=== PATIENT | female | born 1975 | race Caucasian/White ===

== ENCOUNTER 2017-03-29 16:47 | Emergency (ER) | payer BC ==
[~2017-03-29] VITALS: Ht 157.5 cm; Wt 79.1 kg
[2017-03-29 18:14] VITALS: BP 123/89
--- NOTE | 2017-03-29 20:13 | NUR ---
PT AMBULATED TO BED
--- NOTE | 2017-03-29 20:15 | NUR ---
PATIENT PRESENTS TO ED WITH C/O ABD PAIN, NAUSEA AND RT EARACHE . PT STATES SKIN IS PINK/WARM/DRY; AAOX4 WITH EVEN AND STEADY GAIT; LUNGS CLEAR BL; HR EVEN AND REGULAR; PT DENIES ANY FEVER, CP, SOB, OR COUGH AT THIS TIME; PATIENT STATES PAIN OF 5/10 AT THIS TIME; VSS; PATIENT POSITIONED FOR COMFORT; HOB ELEVATED; BEDRAILS UP X2; BED DOWN. ER MD MADE AWARE OF PT STATUS.
[2017-03-29 21:25] VITALS: BP 125/80
--- NOTE | 2017-03-29 21:25 | NUR ---
Patient discharged with v/s stable. Written and verbal after care instructions given and explained. Patient alert, oriented and verbalized understanding of instructions. Ambulatory with steady gait. All questions addressed prior to discharge. ID band removed. Patient advised to follow up with PMD. Rx of MOTRIN, AMOXICILLIN AND ZOFRAN given. Patient educated on indication of medication including possible reaction and side effects. Opportunity to ask questions provided and answered.
== END 2017-03-29 21:25 | disposition home or self-care (01) ==
LOC: MED 16:47
DX: H66.91 Otitis media, unspecified, right ear (principal); J11.1 Influenza due to unidentified influenza virus with other respiratory manifestations
CPT/HCPCS: 99283

== ENCOUNTER 2021-09-24 11:45 | Emergency (ER) | payer BC ==
[~2021-09-24] VITALS: Ht 167.6 cm; Wt 95.3 kg
[2021-09-24 11:52] VITALS: BP 123/55
--- NOTE | 2021-09-24 11:58 | NUR ---
PT AMBULATED TO ER BED 4
--- NOTE | 2021-09-24 12:13 | NUR ---
DR SCOTT AT BEDSIDE EVALAUTING PT
[2021-09-24] MEDS ORDERED: HYDROcodone/APAP 10/325 MG 1 TAB TAB PO PRN (12:15)
--- NOTE | 2021-09-24 12:15 | NUR ---
45YO FEMALE PT C/O SUDDEN SHARP 10/10 LOWER ABDOMINAL AND BACK PAIN. PT STATES HAVING HX OF KIDNEY STONES IN JUNE WHICH PASSED ON THEIR OWN, REPORTS SIMILIAR SYMPTOMS. PT STATES TAKING 1600MG MOTRIN AND 4MG OF ZOFRAN AT 10 AM THIS MORNING, HAD RELIEF. PT STATES N/V THIS MORNING. X1 EPISODE OF VOMIT THIS MORNING. DENIES CHEST PAIN. DENIES DYSURIA. PT STATES URGENCY BUT HAS RETENTION. PT AAOX4, IN VISBLE DISTRESS AND PACING BY BED.
--- NOTE | 2021-09-24 12:34 | NUR ---
US AT BEDSIDE
--- NOTE | 2021-09-24 12:57 | NUR ---
PT SWABBED FOR COVID([facility]AD). SPECIMEN WALKED TO LAB
[2021-09-24 13:35] LABS: BASOPHILS % (AUTO) 0.3 % (0.0-2.0); EOSINOPHILS % (AUTO) 0.1 % (0.0-4.0); HEMATOCRIT 46.1 % (36-48); HEMOGLOBIN 15.4 g/dL (12.0-16.0); LYMPHOCYTES % (AUTO) 7.5 % (20.5-51.1); MEAN CORPUSCULAR HEMOGLOBIN 29 pg (27-31); MEAN CORPUSCULAR HGB CONC 34 g/dL (33-37); MEAN CORPUSCULAR VOLUME 87.5 fL (80-94); MONOCYTES # (AUTO) 0.5 K/uL (0.8-1.0); MONOCYTES % (AUTO) 4.1 % (1.7-9.3); NEUTROPHILS # (AUTO) 11.5 K/uL (1.8-7.7); PLATELET COUNT (AUTO) 238 K/uL (140-450); RED BLOOD CELL COUNT(AUTO) 5.27 MIL/uL (4.20-5.40); RED CELL DISTRIBUTION WIDTH 13.9 % (11.6-13.7); WHITE BLOOD COUNT (AUTO) 13.1 K/uL (4.8-10.8)
[2021-09-24 13:35] LABS: APPEARANCE,URINE CLEAR (CLEAR); BILIRUBIN,URINE NEGATIVE (NEGATIVE); BLOOD, URINE 1+ (NEGATIVE); COLOR,URINE YELLOW (YELLOW); LEUKOCYTE ESTERASE ,URINE NEGATIVE (NEGATIVE); NITRITE, URINE NEGATIVE (NEGATIVE); PH,URINE 8.5 (5.0-9.0); UGLUCOSE NEGATIVE (NEGATIVE)
[2021-09-24] MEDS ORDERED: IBUP-2213 PO (13:44)
[2021-09-24] MEDS ORDERED: ACET-5629 PO (13:44)
[2021-09-24 13:50] LABS: RBC,URINE 0-5 /HPF (0-5); WBC,URINE 0-5 /HPF (0-5)
[2021-09-24 13:51] LABS: OTHER CASTS, URINE None Seen /LPF (None Seen)
[2021-09-24 13:58] LABS: ALBUMIN 3.9 g/dL (3.4-5.0); ANION GAP 10.4 (8-16); CARBON DIOXIDE 27.3 mmol/L (21-32); CREATININE 0.8 mg/dL (0.6-1.3); POTASSIUM 3.7 mmol/L (3.5-5.1); TOTAL BILIRUBIN 0.6 mg/dL (0.0-1.0)
[2021-09-24 14:05] VITALS: BP 128/79
--- NOTE | 2021-09-24 14:05 | NUR ---
Patient discharged with v/s stable. Written and verbal after care instructions FOR KIDNEY STONES given and explained. Patient alert, oriented and verbalized understanding of instructions. Ambulatory with steady gait. All questions addressed prior to discharge. ID band removed. Patient advised to follow up with PMD. Rx of OXYCODONEHCL AND IBURPOFEN given.
--- NOTE | 2021-09-24 14:06 | NUR ---
The patient's care was reviewed and supervised by Bisi Ramirez RN.
--- NOTE | 2021-09-24 14:49 | NUR ---
PT WENT TO ER ADMITTING STATING SHE FEELS DIZZY AFTER TAKING THE MEDICATION GIVEN. PT REPORTS SHE HASNT HAD ANYTHING TO EAT TODAY. PT GIVEN WATER AND FOOD. DR HERNÁNDEZ ADVISED TO LAY FLAT AND DRINK WATER. PT ADVISED TO RETURN IF DIZZINESS PERSISTS.
== END 2021-09-24 16:05 | disposition home or self-care (01) ==
LOC: MED 11:45
DX: N23 Unspecified renal colic (principal); Z20.822 Contact with and (suspected) exposure to COVID-19; Z79.899 Other long term (current) drug therapy; Z87.442 Personal history of urinary calculi
CPT/HCPCS: 36415; 76770; 80053; 81001; 81025; 85025; 87426; 99284; Q0092